=== PATIENT | male | born 1955 | race African-American/Black ===

== ENCOUNTER 2020-07-28 16:23 | Emergency (ER) | payer OTHER, MEDICAID ==
[~2020-07-28] VITALS: Ht 175.3 cm; Wt 108.4 kg
[2020-07-28 16:32] VITALS: BP_SYST 152
[2020-07-28 16:39] VITALS: BP_SYST 152
[2020-07-28] MEDS ORDERED: KETOROLAC TROMETHAMINE 30 MG VIAL IM ONE (17:00)
== END 2020-07-28 17:06 | disposition home or self-care (01) ==
LOC: SED 16:23
DX: S69.91XA Unspecified injury of right wrist, hand and finger(s), initial encounter (principal); X50.3XXA Overexertion from repetitive movements, initial encounter; Y93.89 Activity, other specified; Y92.89 Other specified places as the place of occurrence of the external cause; Y99.8 Other external cause status
CPT/HCPCS: 73130; 96372; 99283; J1885

== ENCOUNTER 2020-10-05 15:24 | Emergency (ER) | payer BC, MEDICAID ==
[~2020-10-05] VITALS: Ht 175.3 cm; Wt 91.6 kg
[2020-10-05 15:24] VITALS: BP_SYST 161
[2020-10-05] MEDS ORDERED: ASPIRIN 81 MG TAB.CHEW PO ONE (15:45)
[2020-10-05 16:22] LABS: BASOPHILS # (AUTO) 0.1 K/uL (0.0-0.2); EOSINOPHILS % (AUTO) 0.6 % (0.0-4.0); HEMATOCRIT 41.1 % (36-54); HEMOGLOBIN 12.8 g/dL (14.0-18.0); LYMPHOCYTES # (AUTO) 3.2 K/uL (1.0-5.5); LYMPHOCYTES % (AUTO) 42.8 % (20.5-51.5); MEAN CORPUSCULAR HEMOGLOBIN 22 pg (27-31); MEAN CORPUSCULAR HGB CONC 31 % (32-36); MEAN CORPUSCULAR VOLUME 72 fL (79.0-98.0); MONOCYTES # (AUTO) 1.1 K/uL (0.0-1.0); MONOCYTES % (AUTO) 15.1 % (1.7-9.3); NEUTROPHILS % (AUTO) 40.5 % (40.0-70.0); PLATELET COUNT (AUTO) 215 K/uL (130-430); RED BLOOD CELL COUNT(AUTO) 5.71 MIL/uL (4.2-6.2); RED CELL DISTRIBUTION WIDTH 18.6 % (9.0-15.0); WHITE BLOOD COUNT (AUTO) 7.5 K/uL (4.8-10.8)
[2020-10-05 16:56] LABS: CALCIUM 8.5 mg/dL (8.4-11.0); CREATININE 0.86 mg/dL (0.55-1.30)
[2020-10-05 17:02] LABS: ALBUMIN 3.5 g/dL (3.4-4.8); TOTAL BILIRUBIN 0.4 mg/dL (0.0-1.0)
[2020-10-05] MEDS ORDERED: METO50TA7 PO (18:00)
[2020-10-05] MEDS ORDERED: VERA180T11 PO (18:00)
[2020-10-05] MEDS ORDERED: CAT.1 PO (18:00)
[2020-10-05 22:05] VITALS: BP_SYST 137
== END 2020-10-05 22:05 | disposition short-term general hospital (02) ==
LOC: SED 15:24
DX: I11.0 Hypertensive heart disease with heart failure (principal); I50.9 Heart failure, unspecified; Z79.899 Other long term (current) drug therapy; Z20.828 Contact with and (suspected) exposure to other viral communicable diseases
CPT/HCPCS: 36415; 71045; 80053; 83880; 84484; 85025; 93005; 99285